=== PATIENT | female | born 1960 | race Native Hawaiian/Other Pacific Islander ===

== ENCOUNTER 2016-08-23 14:18 | Emergency (ER) | payer BC ==
[~2016-08-23] VITALS: Ht 154.9 cm; Wt 55.3 kg
[2016-08-23 14:25] VITALS: TEMP 98.5
[2016-08-23] MEDS ORDERED: BISOPROL FUM5 MG PO (14:47)
[2016-08-23] MEDS ORDERED: VALSARTAN160 MG PO (14:47)
[2016-08-23] MEDS ORDERED: BRILINTA90 MG OR (14:48)
[2016-08-23] MEDS ORDERED: LIPITOR20 MG PO (14:48)
[2016-08-23] MEDS ORDERED: VICTOZA18 MG/3 ML SC (14:49)
[2016-08-23] MEDS ORDERED: HYDR25TA60 PO (14:50)
[2016-08-23] MEDS ORDERED: PROTONIX20 MG PO (14:50)
[2016-08-23] MEDS ORDERED: ALPR0.2566 PO (14:52)
[2016-08-23 14:55] LABS: PLATELET COUNT 293 K/uL (152-353)
[2016-08-23 15:01] LABS: POTASSIUM 4.3 mmol/L (3.6-5.2); SODIUM 134 mmol/L (136-145)
[2016-08-23 15:59] VITALS: BP 141/71
== END 2016-08-23 16:00 | disposition home or self-care (01) ==
LOC: ED 14:18
DX: R07.89 Other chest pain (principal); E11.9 Type 2 diabetes mellitus without complications; Z98.890 Other specified postprocedural states
CPT/HCPCS: 36415; 80053; 82550; 84484; 85027; 86318; 93005; 99284

== ENCOUNTER 2016-08-28 15:19 | Emergency (ER) | payer BC ==
[~2016-08-28] VITALS: Ht 154.9 cm; Wt 55.8 kg
[~2016-08-28 15:19] MED LIST: ALPR0.2566 PO; BISOPROL FUM5 MG PO; BRILINTA90 MG OR; HYDR25TA60 PO; LIPITOR20 MG PO; PROTONIX20 MG PO; VALSARTAN160 MG PO; VICTOZA18 MG/3 ML SC
[2016-08-28 15:52] VITALS: TEMP 98.4
[2016-08-28 15:59] VITALS: BP 157/77
== END 2016-08-28 16:05 | disposition home or self-care (01) ==
LOC: ED 15:19
DX: S30.1XXD Contusion of abdominal wall, subsequent encounter (principal); X58.XXXD Exposure to other specified factors, subsequent encounter
CPT/HCPCS: 99282

== ENCOUNTER 2017-09-05 09:26 | Emergency (ER) | payer BC ==
[~2017-09-05] VITALS: Ht 152.4 cm; Wt 63.5 kg
[2017-09-05 09:37] VITALS: TEMP 97.5
[2017-09-05 11:37] LABS: PLATELET COUNT 241 K/uL (152-353)
[2017-09-05 11:43] VITALS: BP 136/72
[2017-09-05 11:49] LABS: POTASSIUM 3.3 mmol/L (3.6-5.2)
== END 2017-09-05 11:45 | disposition home or self-care (01) ==
LOC: ED 09:26
DX: S70.01XA Contusion of right hip, initial encounter (principal); W19.XXXA Unspecified fall, initial encounter; Y93.89 Activity, other specified; Y92.89 Other specified places as the place of occurrence of the external cause
CPT/HCPCS: 36415; 80053; 85027; 85610; 99283

== ENCOUNTER 2019-12-26 07:39 | Outpatient (CLI) | payer BC ==
[2019-12-26 09:17] LABS: POTASSIUM 3.9 mmol/L (3.6-5.2)
== END 2019-12-26 22:15 | disposition home or self-care (01) ==
LOC: LABW 07:39
PROVIDERS: ATTEND Internal Medicine
DX: Z98.84 Bariatric surgery status (principal); M19.90 Unspecified osteoarthritis, unspecified site; E11.9 Type 2 diabetes mellitus without complications
CPT/HCPCS: 36415; 80053; 80061; 81000; 82043; 82306; 82570; 82607; 83036; 83540; 84439; 84443; 84550; 86430

== ENCOUNTER 2020-09-08 10:57 | Outpatient (CLI) | payer BC, OTHER | END 2020-09-08 23:36 | disposition home or self-care (01) | LOC: LAB 10:57 | PROVIDERS: ATTEND Internal Medicine | DX: Z20.822 Contact with and (suspected) exposure to COVID-19 (principal) | CPT/HCPCS: 87635; G2023; U0003 ==

== ENCOUNTER 2022-01-12 07:48 | Outpatient (CLI) | payer OTHER ==
[~2022-01-12] VITALS: Ht 160 cm; Wt 49.4 kg
== END 2022-01-12 18:58 | disposition home or self-care (01) ==
LOC: NM 07:48
PROVIDERS: ATTEND Internal Medicine Cardiovascular Disease
DX: R07.89 Other chest pain (principal)
CPT/HCPCS: A9500; J2785